=== PATIENT | female | born 1995 | race Caucasian/White ===

== ENCOUNTER 2019-11-29 08:28 | Outpatient (CLI) | payer MEDICAID, SELFPAY ==
--- NOTE | 2019-11-29 08:34 | US_ITS ---
WS: [id number] ULTRASOUND OB LIMITED TECHNIQUE: Limited ultrasound examination of the fetus. CLINICAL INFORMATION: SUPERVISION NORMAL COMPARISON: November 04, 2019 FINDINGS: Single interuterine gestation. presentation is vertex Placental location is anterior. Placenta grade: 0. heart rate 157 BPM. Normal amniotic fluid volume. Anatomy: Left ventricular outflow track remains difficult to visualize but better seen today within normal loera its. Normal 4 chamber heart. US/[place] [id number] IMPRESSION: 1. Left ventricular outflow track remains difficult to visualize but better se en today within normal limits 2. Normal four-chamber heart.
== END 2019-11-29 08:29 | disposition home or self-care (01) ==
PROVIDERS: Family Provider Family Medicine; PCP Family Medicine; Visit Provider Family Medicine
DX: Z34.80 Encounter for supervision of other normal pregnancy, unspecified trimester (principal)
CPT/HCPCS: 76816

== ENCOUNTER 2019-12-16 21:55 | Inpatient (IN) | payer MEDICAID, SELFPAY ==
[2019-12-16] VITALS (9 sets, daily range): BP systolic 0–131; BP diastolic 0–72; PULSE 80–97; RESP 16; TEMP 36.8; BMI 38.8
--- NOTE | 2019-12-16 22:10 | US_ITS ---
WS: [id number] BIOPHYSICAL PROFILE HISTORY: WELL BEING COMPARISON: None available. Parameters are as follows: Breathin Movement: 2 Tone: 2 Fluid volume: 2 Breech position. Cardiac activity 171 bpm. Anterior placenta with no previa or abruption. Grade 1. Cervix is closed at 6.1 cm. Largest vertical pocket of amniotic fluid 3.7 cm. Biophysical profile score: 8/8. US/US OB BPP wo NST 11439 IMPRESSION:
[2019-12-16 22:48] LABS: Basophils % 0.1 %; Eosinophils # 0.1 10^3/uL (0.0-0.8); Eosinophils % 0.7 %; Hematocrit 35.6 % (37.0-47.0); Hemoglobin 11.3 g/dL (11.5-15.3); Lymphocytes # 2.4 10^3/uL (0.8-4.8); Lymphocytes % 15.8 %; Mean Corpuscular HGB Conc 31.7 g/dL (30.0-36.0); Mean Platelet Volume 8.9 fL (7.4-10.4); Monocytes # 0.9 10^3/uL (0.2-0.9); Neutrophils # 11.4 10^3/uL (1.8-7.7); Neutrophils % 76.9 %; Nucleated Red Blood Cells % 0 %; Platelet Count 356 10^3/cmm (130-400); Red Blood Count 4.19 10^6/uL (4.1-5.3); Red Cell Distribution Width 14.5 % (12.1-15.1); White Blood Count 14.9 10^3/uL (4.0-10.0)
[2019-12-16 22:52] LABS: Alanine Aminotransferase 10 U/L (0-33); Albumin Level 3.5 g/dL (3.5-5.2); Alkaline Phosphatase 96 IU/L (35-105); Anion Gap 14.1 (5-19); Aspartate Amino Transferase 15 U/L (0-32); Blood Urea Nitrogen 6 mg/dL (6-20); Calcium 9.8 mg/dL (8.5-10.5); Carbon Dioxide 26 mmol/L (22-29); Chloride 100 mmol/L (98-107); Globulin 3.6 g/dL (1.3-4.6); Glomerular Filtration Rate 101.1 mL/min (90-130); Glucose 87 mg/dL (74-109); Potassium 4.1 mmol/L (3.5-5.1); Sodium 136 mmol/L (136-145); Total Bilirubin 0.2 mg/dL (0.15-1.2); Total Protein 7.1 g/dL (6.6-8.7)
[2019-12-16] MEDS: lactated ringers 1,000 ML 125 ML IV (23:01)
[2019-12-16] MEDS: betamethasone susp 6 mg/mL 5 mL 12 MG IM (23:02)
[2019-12-17] VITALS (33 sets, daily range): BP systolic 102–126; BP diastolic 44–75; PULSE 76–101; RESP 16–18; TEMP 36.5–36.7
[2019-12-17 01:13] LABS: INR 1.02 (0.8-1.2)
[2019-12-17 01:14] LABS: Partial Thromboplastin Time 26.8 SECONDS (23.9-36.7)
[2019-12-17 01:15] LABS: Fibrinogen 528 mg/dL (184-529)
[2019-12-17] MEDS: lactated ringers 1,000 ML 125 ML IV ×3 (06:44→22:52)
--- NOTE | 2019-12-17 08:34 | P.HP_ITS ---
Providers/Chief Complaint Admitting Physician: Juan Bustos MD Primary Care Provider: Juna Bustos MD Chief Complaint: vaginal bleeding History of Present Illness Nathaly Beach is a 24 year old G2, P1 at 24.4 weeks gestation by 6-week ultrasound inconsistent with LMP. Her is complicated by history of gestational hypertension, history of 9 pound 4 ounce infant. The patient was in her usual state of health on 12/16/2019, when she was having a bowel movement and began having vaginal bleeding. The patient said that it was a small amount of blood, however it was bright red in nature. It was mixed with mucus. The patient did not have any contractions or abdominal pain with this. She presented to labor and delivery for further evaluation. In labor and delive ry a sterile vaginal exam was done and bright red blood was noted on the glove mixed with mucus. For this reason the patient was kept for further observation. Review of Systems Narrative: The patient denies chest pains, fever, shortness of breath, cough, abdominal pain, nausea, vomiting, diarrhea, leakage of fluid. The patient admits to vaginal bleeding and constipation. Medications/Allergies Home Medications Medication Instructions Recorded Confirmed Last Taken Type [id number] fumarate-FA 1 tab PO DAILY 12/16/19 12/16/19 12/15/19 20:00 History [] Allergies Allergy/AdvReac Type Severity Reaction Status Date / Time No Known Drug Allergies Allergy Unknown Unknown Verified 12/16/19 20:52 PFSH Acute PFSH: Statuses (acute, chronic, etc) shown below reflect problem list status as previously entered and may not be historically accurate Medical History (Updated 12/17/19 @ 08:40 by Juan Bustos MD) History of gestational hypertension (Acute) Female Reproductive History: : 2 Vitals/I&O/Wt Last Vital Signs Temp 98.1 F 12/17/19 04:15 Pulse 85 12/17/19 08:21 Resp 18 12/17/19 04:15 BP 114/61 12/17/19 08:21 12/16/19 12/17/19 12/17/19 22:59 06:59 14:59 Intake Total 964.583 / 964.583 Balance 964.583 / 964.583 Weight last 48 hrs Weight 8.748 oz Weight 248 lb Physical Exam Narrative: EXAM NARRATIVE: General: Alert and oriented x3 Eyes: Pupils equal round and reactive to light and accommodation Mouth: Mucous membranes moist, pharynx non-erythematous Cardiac: Regular rate and rhythm without murmurs Lungs: Clear to auscultation bilaterally without wheezes, crackles or rhonchi Abdomen: Soft, non-tender, fundus consistent with gestational age Extremities: Trace edema in the bilateral lower extremities Data : 12/16/19 22:15 12/16/19 22:15 A&P Additional A&P Information Nathaly Beach is a 24 year old at 24.4 weeks gestation by 6-week ultrasound inconsistent with LMP. Her is complicated by history of gestational hypertension, history of 9 pound 4 ounce infant. There is concern that the patient may have a placental abruption. The ultrasound did not show findings of this and she is not currently having contractions, however with the vaginal bleeding, we will watch the patient for the next 48 hours to be sure that this does not package pick up. The patient was given a dose of steroids last night and we will give the second dose this evening. The patient will be on bedrest with bathroom privileges and if any bleeding increases, then we will further evaluate. Certainly if the bleeding is picking up more or there are contractions, then we will need to add further treatments as well as look at transferring to a higher level of care. The patient's labs look good at this time. The patient is stable, so we will plan to keep her here at this time. Plan for discharge home 48 hours after last bleeding as long as the patient is stable. All questions were answered. The patient is in agreement with the current plan of care. Attestations Medical Necessity Statement*: The patient will be here for greater than 2 midnights due to treatment of placental abruption. Coding Level of Care Code Acute Light Industrial Supervisor for Nia Hsieh
[2019-12-17] MEDS: betamethasone susp 6 mg/mL 5 mL 12 MG IM (22:52)
[2019-12-18] VITALS (7 sets, daily range): BP systolic 111–124; BP diastolic 57–72; PULSE 72–83; RESP 18; TEMP 36.4–36.6
[2019-12-18] MEDS: lactated ringers 1,000 ML 125 ML IV (06:18)
--- NOTE | 2019-12-18 07:45 | US_ITS ---
WS: [id number] LIMITED OBSTETRICAL ULTRASOUND HISTORY: Placental abruption COMPARISON: 12/16/2019 Presentation: Breech. Cervix: Closed and normal length. 4.9 cm in length. Placenta: Anterior. No abruption or previa is identified. Grade: 1 HEART: FHR of 150 BPM. measurements: BPD = 6.1 cm = 24w6d HC = 23.0 cm = 25w0d AC = 20.3 cm = 24w6d FL = 4.6 cm = 25w2d Visually there is an appropriate amount of amniotic fluid. EFW: 762 g; 58 %. AGA by ultrasound: 25w0d LUCIA by ultrasound: 04/01/2020 Correlates well with the first trimester EDC of 04/03/2020. US/ OB limited 40413 IMPRESSION: 1. Single intrauterine gestation of 25 weeks 0 days with an EDC of 04/01/2020. Appropriate growth since the first trimester ultrasound. 2. Anterior placenta with no abruption. 3. Breech.
--- NOTE | 2019-12-18 19:18 | P.DS_ITS ---
Discharge Providers Date of Admission: 12/16/19 21:55 Date of Discharge: Date of Discharge: December 18, 2019 Attending Provider at Admission: Juan Bustos MD Attending Provider at Discharge: Juan Bustos MD Primary Care Provider: Juan Bustos MD Diagnoses at Discharge Discharge Diagnosis (1) Intrauterine : Status: Acute (2) Vaginal bleeding in : Status: Acute Other Information Additional DC diagnoses/information: 1. Intrauterine at 24.4 weeks gestation 2. Third trimester vaginal bleeding concerning for placental abruption 3. History of gestational hypertension Reason for Visit Reason for Visit: Reason For Visit: vaginal bleeding Hospital Course Hospital Course: The patient was admitted to labor and delivery triage secondary to vaginal bleeding concerning for a placental abruption. The patient had bright red blood upon exam and was watched for further observation. Lab work done did not show any signs of coagulopathies. No significant contractions were noted. The patient had no further bleeding after admission and was watched for 2 days. She did well and since that her bleeding stopped and she had no further problems, she was given precautions to decrease her activity overall over the next few days and gradually increase as tolerated. If bleeding starts again, she is to let me know or return to OB triage. I discussed with the patient that this could be due to placental abruption, however there is always a possibility of cervical bleeding. An ultrasound was done to confirm adequate growth at this point, and we will plan to do a recheck in approximately a month. All questions were answered and the patient is in agreement with discharge home at this time. Physical Exam Narrative: EXAM NARRATIVE: General: Alert and oriented x3 Cardiac: Regular rate and rhythm without murmurs Lungs: Clear to auscultation bilaterally without wheezes, crackles or rhonchi Abdomen: Soft, nontender, fundus consistent with gestational age Extremities: Trace edema in the bilateral lower extremities Discharge Data Data Completed and Pending: Completed Studies During Hospitalization Category Date Time Status US OB BPP w o NST 78226 Routin e Ultrasound 12/16/19 22:10 Completed US OB limited 768 15 Routine Ultrasound 12/18/19 07:45 Completed Pending at discharge Category Date Time Status Group B Streptoco ccus Culture Stat Lab 12/16/19 22:42 Results Vitals: Last Vital Signs Temp 97.5 F L 12/18/19 09:26 Pulse 83 12/18/19 12:43 Resp 18 12/18/19 04:00 BP 114/65 12/18/19 12:43 Discharge Plan Discharge Patient Disposition: Home, Self-Care Condition: Good Prescriptions: New Milk of Magnesia 400 mg/5 mL suspension 15 ml PO DAILY PRN (Reason: constipation) Qty: 118 RF: 0 Continued 28-800 mg-mcg Tablet 1 tab PO DAILY RF: 0 Discharge Orders: Discharge Order (Routine); Ordered 12/18/19 Ordered By: Juan Bustos Referrals: Juan Bustos MD [Primary Care Provider] - 12/20/19 Discharge Diet: Regular Discharge Activity: Limit activity as instructed Patient Instructions: Placental Abruption (GEN), OB Discharge Report, OB Undelivered Discharge Activity Restrictions/Additional Instructions: Keep her overall activity level very low for the next few days, then gradually increase as long as there is no bleeding. Discharge Date/Time: 12/18/19 15:10 Discharge Attestations Time Spent in Discharge Care*: less than 30 min Quality Metrics Clinical Quality Measures During this hospital stay, did patient experience: None Coding Level of Care Code Acute Automotive Repair Technician for Chg Fwd Diagnoses Intrauterine Z34.90 Vaginal bleeding in O46.90
== END 2019-12-18 15:10 | disposition home or self-care (01) | DRG 833 ==
LOC: OBGYN 12-17 07:59 → OPOB 12-19 08:12
PROVIDERS: Admitting Provider Family Medicine; Family Provider Family Medicine; PCP Family Medicine; Visit Provider Family Medicine
DX: O45.92 Premature separation of placenta, unspecified, second trimester (principal); Z3A.24 24 weeks gestation of pregnancy; Z79.899 Other long term (current) drug therapy
CPT/HCPCS: 12345; 36415; 59025; 76815; 76819; 80053; 85025; 85384; 85610; 85730; 86850; 86900; 87081; 96360; 96361; 96372; 99211; A9270; G0378; J0702

== ENCOUNTER 2020-03-05 14:55 | Outpatient (CLI) | payer MEDICAID, SELFPAY ==
--- NOTE | 2020-03-05 | US_ITS ---
WS: [id number] ULTRASOUND OB LIMITED TECHNIQUE: Limited ultrasound examination of the fetus. CLINICAL INFORMATION: THOR, BPP AND EFW SMALL FOR GSA COMPARISON: December 18, 2019 FINDINGS: Cervix measures 3.2 cm Single interuterine gestation. Placental location is anterior. Placenta grade: 2 heart rate 141 BPM. THOR 13.62 Estimated gestational age 36 weeks 5 days Estimated delivery March 28, 2020 Biophysical profile 8 out of 8. breathin movement: 2 tone: 2 Amniotic fluid: 2 IMPRESSION 1. Normal biophysical profile 8 out of 8 2. Anterior placenta grade 2. 3. Cervix is long and closed. 4. Normal THOR.
== END 2020-03-05 14:56 | disposition home or self-care (01) ==
PROVIDERS: Family Provider Family Medicine; PCP Family Medicine; Visit Provider Family Medicine
DX: P05.10 Newborn small for gestational age, unspecified weight (principal)
CPT/HCPCS: 76815; 76819

== ENCOUNTER 2020-03-24 11:04 | Outpatient (CLI) | payer MEDICAID, SELFPAY ==
[2020-03-24] VITALS (9 sets, daily range): BP systolic 0–161; BP diastolic 0–89; PULSE 86–93; BMI 39.6
--- NOTE | 2020-03-24 11:22 | US_ITS ---
WS: [id number] BIOPHYSICAL PROFILE AND LIMITED OB. HISTORY: Gestational HYPERTENSION COMPARISON: 03/05/2020, 08/12/2019 Presentation: Vertex. Cervix: Not well visualized. Placenta: Anterior, no previa or abruption. Grade: 2 HEART: FHR of 160BPM. measurements: BPD = 9.6 cm = 39w1d HC = 34.0 cm = 39w1d AC = 35.5 cm = 39w3d FL = 7.5 cm = 38w4d THOR: 14.8 cm; largest vertical pocket is 5.2 cm. EFW: 3710g; 88 %. AGA by ultrasound: 39w1d LUCIA by ultrasound: 03/30/2020 Measurements are internally concordant. Appropriate growth since the first trimester ultrasound. Biophysical profile: Parameters are as follows: Breathin Movement: 2 Tone: 2 Fluid volume: 2 1. Biophysical profile score: 8/8. 2. Single intrauterine gestation of 39w1d and 03/30/2020. Appropriate growth since the first trimeste r ultrasound. Normal amniotic fluid index. US/US OB lmt w/ BPP wo NST IMPRESSION:
== END 2020-03-24 12:50 | disposition home or self-care (01) ==
LOC: OPOB 11:07 → OBGYN 03-26 08:51
PROVIDERS: PCP Family Medicine; Visit Provider Family Medicine
DX: O16.3 Unspecified maternal hypertension, third trimester (principal); Z3A.00 Weeks of gestation of pregnancy not specified
CPT/HCPCS: 59025; 76815; 76819; 99211

== ENCOUNTER 2020-03-25 14:42 | Inpatient (IN) | payer MEDICAID, SELFPAY ==
[2020-03-25] VITALS (41 sets, daily range): BP systolic 0–178; BP diastolic 0–97; PULSE 74–112; TEMP 36.7
[2020-03-25 15:33] LABS: Total Volume, Urine 650 mL
[2020-03-25 15:51] LABS: Total Protein 24 Hour Urine 209.3 mg/24HR (0-150); Urine Total Protein 24 Hour 32.2 mg/dL (0-150)
--- NOTE | 2020-03-25 16:44 | PM.HP ---
Providers/Chief Complaint Admitting Physician: Juan Bustos MD Primary Care Provider: Juan Bustos MD Chief Complaint: Elevated BP History of Present Illness Nathaly Beach is a 24 year old at 38.5 weeks gestation by 6-week ultrasound inconsistent with LMP. Her is complicated by history of gestational hypertension now with gestational hypertension with intermittent severe features, history of 9 pound 4 ounce , GBS positive. The patient presents to labor and delivery triage secondary to elevating blood pressures over the last week. They have been gradually increasing and she was seen in triage yesterday with blood pressures in the low to mid 140s. She came back today for a recheck and her blood pressures were in the 140s systolic up to 158 systolic. She has been seeing spots in her vision. She denies any headaches, nausea, fever, chest pain, shortness of breath, dysuria. She has had some minimal vaginal bleeding since being checked yesterday. No leakage of fluid. Medications/Allergies Home Medications Medication Instructions Recorded Confirmed Last Taken Type 1 tab PO DAILY 12/16/19 03/24/20 03/24/20 07:30 History Allergies Allergy/AdvReac Type Severity Reaction Status Date / Time No Known Drug Allergies Allergy Unknown Verified 03/24/20 11:39 PFSH Acute PFSH: Medical History (Updated 03/25/20 @ 16:49 by Juan Bustos MD) History of gestational hypertension Family History (Updated 03/25/20 @ 16:48 by Juan Bustos MD) Mother Lupus Social History (Updated 03/25/20 @ 16:48 by Juan Bustos MD) Smoking and tobacco status: never smoked Alcohol intake: never Substance/Drug Use: never Vitals/I&O/Wt Last Vital Signs Pulse 98 03/25/20 16:39 BP 142/89 03/25/20 16:39 Physical Exam Narrative: EXAM NARRATIVE: General: Alert and oriented x3 Eyes: Pupils equal round and reactive to light and accommodation Mouth: Mucous membranes moist, pharynx non-erythematous Cardiac: Regular rate and rhythm without murmurs Lungs: Clear to auscultation bilaterally without wheezes, crackles or rhonchi Abdomen: Soft, non-tender, fundus consistent with gestational age Extremities: Trace edema in the bilateral lower extremities A&P Assessment and plan (1) Intrauterine : Status: Acute (2) Gestational hypertension: Status: Acute Additional A&P Information Nathaly Beach is a 24 year old at 38.5 weeks gestation by 6-week ultrasound inconsistent with LMP. Her is complicated by history of gestational hypertension now with gestational hypertension with intermittent severe features, history of 9 pound 4 ounce , GBS positive. Because of the patient's blood pressures have been elevated in the 140s and high 150s, we will go ahead and induce her for gestational hypertension with intermittent severe features. The patient has been seeing spots off and on. The patient is GBS is positive so we will go ahead and treat with ampicillin. We will start her IV and start the antihypertensive protocol as needed. We will induce her using IV Pitocin. The patient's cervical exam is 4/50/-1. heart tones are in the mid 150s with moderate variability and good accelerations. This is a category 1 tracing. I spoke with the patient and her regarding the findings and recommendations for induction of labor secondary to gestational hypertension with intermittent severe features and the possible risks surrounding delivery prior to term and they are in agreement with proceeding with induction of labor at this time. All questions were answered. Attestations Medical Necessity Statement*: The patient will be here for greater than 2 midnights due to routine intrapartum and management of labor and delivery. Coding Level of Care Code Acute Automobile Washer Steam for Chg Jori Diagnoses Intrauterine Z34.90 Gestational hypertension O13.9
[2020-03-25 18:41] LABS: Basophils % 0.2 %; Eosinophils # 0.1 10^3/uL (0.0-0.8); Eosinophils % 0.7 %; Hematocrit 35.3 % (37.0-47.0); Hemoglobin 11.2 g/dL (11.5-15.3); Lymphocytes # 2.3 10^3/uL (0.8-4.8); Lymphocytes % 17.3 %; Mean Corpuscular HGB Conc 31.7 g/dL (30.0-36.0); Mean Corpuscular Hemoglobin 27.6 pg (28.0-34.0); Mean Corpuscular Volume 86.9 fL (81-99); Mean Platelet Volume 10.1 fL (7.4-10.4); Monocytes % 7.2 %; Neutrophils # 9.8 10^3/uL (1.8-7.7); Neutrophils % 73.9 %; Nucleated Red Blood Cells % 0 %; Platelet Count 308 10^3/cmm (130-400); Red Blood Count 4.06 10^6/uL (4.1-5.3); Red Cell Distribution Width 15.9 % (12.1-15.1); White Blood Count 13.3 10^3/uL (4.0-10.0)
[2020-03-25] MEDS: ampicillin 2,000 MG in sodium chloride 0.9% (plus) 50 ML 100 MG IV (18:46)
[2020-03-25] MEDS: dextrose 5%-lactated ringers 1,000 ML 125 ML IV (18:46)
[2020-03-25] MEDS: labetalol 5 mg/mL SDV 20mL 20 MG IVP (22:45)
[2020-03-25] MEDS: ampicillin 1,000 MG in sodium chloride 0.9% (plus) 50 ML 100 MG IV (22:59)
[2020-03-26] VITALS (141 sets, daily range): BP systolic 0–203; BP diastolic 0–139; PULSE 61–107; RESP 16–18; TEMP 36.4–37.1; O2SAT 89–100
[2020-03-26] MEDS: oxytocin 30 UNIT/500 ML BAG IV (00:20)
[2020-03-26] MEDS: ampicillin 1,000 MG in sodium chloride 0.9% (plus) 50 ML 100 MG IV ×3 (02:10→10:55)
--- NOTE | 2020-03-26 04:34 | P.ANESUD_ITS ---
Pre-Anesthetic Update Pre-Anesthetic Assessment: Date of Surgery/Procedure: 03/26/20 Preop Cristine gnosis: IUP Any changes to Pre-Anesthetic Assessment?: No Last Intake: 16:00 Labs Last 48hrs: Laboratory Results - last 48 hr 03/25/20 03/25/20 14:30 17:20 WBC 13.3 H RBC 4.06 L Hgb 11.2 L Hct 35.3 L MCV 86.9 MCH 27.6 L MCHC 31.7 RDW 15.9 H Plt Count 308 MPV 10.1 Neut % (Auto) 73.9 Lymph % (Auto) 17.3 Stewart % (Auto) 7.2 Eos % (Auto) 0.7 Baso % (Auto) 0.2 Neut # (Auto) 9.8 H Lymph # (Auto) 2.3 Stewart # (Auto) 1.0 H Eos # (Auto) 0.1 Baso # (Auto) 0.0 Nucleated RBC % (a uto) 0 Nucleated RBCs # 0.0 Urine Total Volume 650 Ur 24 Hour Volume 209.3 H Ur Total Protein 2 4 Hr 32.2 Vitals: Temperature 98.7 F 03/26/20 02:00 Temperature Source Oral 03/26/20 02:00 Pulse Rate 80 03/26/20 04:29 Respiratory Effort Non-Labored 03/25/20 20:17 Respiratory Depth Normal 03/25/20 20:17 Respiratory Patter n 03/25/20 20:17 Blood Pressure 138/78 03/26/20 04:29 Blood Pressure Becca n 98 03/26/20 04:29 Pulse Oximetry 98 03/26/20 04:32 Oxygen Delivery Me thod 03/25/20 20:17 Exam: Pre-Anes Outpt Exam: alert, oriented x 3, clear to auscultation bilate rally and regular rate & rhythm Cardiac Studies: No Data to Display
--- NOTE | 2020-03-26 04:35 | P.ANES_ITS ---
Anesthesia Procedures Procedure/Date: 03/26/20 Epidural: Time Out Performed: Yes Consents Signed: Procedure Consent Consent: requested by attending/covering physician and from patient Lumbar Level: L3-L4 Epidural position: sitting Epidural procedure: sterile prep of area, 1% lidocaine to numb the area, 18 g needle, neg for paresthesia, test d ose given, 1.5% xylocaine 1:200k epi, 0.2% Ropivacaine bolus ml, placed PCEA, no systemic response, sterile dressing applied, L.U.D. no apparent complications and 0.2% Ropiavacaine @ mls/hr Additional Comments: Ropiv 0.2% 8 cc and Fentanyl 100 mcg bolus
[2020-03-26] MEDS: lactated ringers 1,000 ML 999 ML IV (04:38)
--- NOTE | 2020-03-26 05:11 | ANES.PREANE2 ---
Pre-Anesthetic Assessment Pre-Anesthetic Assessment: Height/Weight: Height 1.7 m Temp Pulse BP Pulse Ox 98.7 F 66 0/0 98 03/26/20 02:00 03/26/20 05:05 03/26/20 05:09 03/26/20 04:56 Preop Diagnosis: IUP Proposed Procedure: JUANA Was Beta Kristel taken within 24 hours: N/A Last Intake: 21:00 Social: Social History: No alcohol and No tobacco Exam: Pre-Anes Outpt Exam: alert, oriented x 3, clear to auscultation bilaterally and regular rate & rhythm Airway: Submandibular: WNL Cervical ROM: WNL MP: 2 Dentition: Full History/ROS: No significant history except as noted and No significant complaints Pulmonary: Pulmonary: None reported CV/HEM: CV/HEM: None reported : : None reported Hepatic: Hepatic: None reported GI: GI: None reported Metabolic: Metabolic: None reported Musc/skel: Musc/skel: None reported Neuropsych: Neuropsych: None reported Anesthetic Plan: ASA status: 2 Anesthesia: Regional (specify below) Other: JUANA Risk of > 500 ml blood loss (7ml/kg in children): No Meds/Allergies Current Medications: Current Medications Generic Name Dose Route Start Last Admin Trade Name Freq PRN Reason Stop Dose Admin Dextrose/Lactated Ringer's 1,000 mls @ 125 m ls/hr 03/25/20 18:30 03/25/20 18:46 Dextrose 5%-Lact ated Ringers IV 125 mls/hr .Q8H NILA Administration Ampicillin Sodium 1,000 mg/ 50 mls @ 100 mls/ hr 03/25/20 22:21 03/26/20 02:10 Sodium Chloride IV 100 mls/hr Q4H NILA Administration Protocol Ampicillin Sodium 2,000 mg/ 50 mls @ 100 mls/ hr 03/25/20 18:30 03/25/20 18:46 Sodium Chloride IV 100 mls/hr ONCE NILA Administration Protocol Oxytocin 30 unit in 500 ml s @ 1 mls/hr 03/25/20 18:30 03/26/20 01:33 Pitocin IV 8 milliunit/min .Q24H NILA 8 mls/hr Titration Protocol 1 MILLIUNIT/MIN Ropivacaine 200 mg in 100 mls @ 13 mls/hr 03/26/20 03:15 03/26/20 04:38 Naropin Premix EPIDURAL 13 mls/hr .Q7H42M NILA Administration PFSH Anesthesia PFSH: Medical History (Updated 03/25/20 @ 16:49 by Juan Bustos MD) History of gestational hypertension Family History (Updated 03/25/20 @ 16:48 by Juan Bustos MD) Mother Lupus Social History (Updated 03/25/20 @ 16:48 by Juan Bustos MD) Smoking and tobacco status: never smoked Alcohol intake: never Substance/Drug Use: never Female Reproductive History: Date of last menstrual period: 06/28/19 Data Anesthesia CBC & Chem 7: 03/25/20 17:20 Other Labs: Laboratory Results - last 48 hr 03/25/20 03/25/20 14:30 17:20 WBC 13.3 H RBC 4.06 L Hgb 11.2 L Hct 35.3 L MCV 86.9 MCH 27.6 L MCHC 31.7 RDW 15.9 H Plt Count 308 MPV 10.1 Neut % (Auto) 73.9 Lymph % (Auto) 17.3 Navarro % (Auto) 7.2 Eos % (Auto) 0.7 Baso % (Auto) 0.2 Neut # (Auto) 9.8 H Lymph # (Auto) 2.3 [place] # (Auto) 1.0 H Eos # (Auto) 0.1 Baso # (Auto) 0.0 Nucleated RBC % (auto) 0 Nucleated RBCs # 0.0 Urine Total Volume 650 Ur 24 Hour Volume 209.3 H Ur Total Protein 24 Hr 32.2 Cardiac Studies: No Data to Display
--- NOTE | 2020-03-26 05:14 | P.ANES_ITS ---
Anesthesia Procedures Procedure/Date: 03/26/20 Epidural: Time Out Performed: Yes Consents Signed: Procedure Consent Consent: requested by attending/covering physician and from patient Lumbar Level: L3-L4 Epidural position: sitting Epidural procedure: sterile prep of area, 1% lidocaine to numb the area, 18 g needle, neg for paresthesia, test d ose given, 1.5% xylocaine 1:200k epi, 0.2% Ropivacaine bolus ml, placed PCEA, no systemic response, sterile dressing applied, L.U.D. no apparent complications and 0.2% Ropiavacaine @ mls/hr Additional Comments: MAYELIN at 6 cm. Ropiv 0.2 % 8cc and Fentanyl 100 mcg bolus
--- NOTE | 2020-03-26 07:30 | PC.NURSE ---
Call to Mary Richey CRNA requesting intervention regarding pt having increased pain with epidural and after pushing bolus button x2.
--- NOTE | 2020-03-26 07:41 | PC.NURSE ---
Mary Smart ELECTRIC MOTOR REPAIRER at bedside dosing epidural to assist in easing pt pain.
--- NOTE | 2020-03-26 07:50 | ANES.PROC ---
Anesthesia Procedures Procedure/Date: 03/26/20 Epidural Bolus Procedure Narrative: Called for pt having lots of pressure and pain with contractions to perineal area. Pt given 2% Lidocaine MPF 10ml via epidural.
--- NOTE | 2020-03-26 08:59 | PC.NURSE ---
Call to Dr Peterson requesting re-evaluation with epidural. Pt pain is not getting better with boluses.
[2020-03-26] MEDS: lactated ringers 1,000 ML 125 ML IV (09:38)
--- NOTE | 2020-03-26 09:53 | ANES.PROC ---
Anesthesia Procedures Procedure/Date: 03/26/20 Lumbar Labor Epidural Epidural: Time Out Performed: Yes Consents Signed: Procedure Consent Consent: from patient Lumbar Level: L3-L4 Epidural position: sitting Epidural procedure: sterile prep of area, 1% lidocaine to numb the area (5), 18 g needle, negative for paresthesia passed, neg for paresthesia, test dose given, 1.5% xylocaine 1:200k epi (5), 0.2% Ropivacaine bolus ml (7 cc 2% Lidocaine used. ), placed PCEA (5cc q10min x 3), no systemic response, sterile dressing applied, L.U.D. no apparent complications and 0.2% Ropiavacaine @ mls/hr (13) Additional Comments: Called to OB for a patient with an epidural placed around 0430. Has had mild relief, and called and it was bolused at 0750. Pt assessed and evaluated. Now she is hurting and having 0 pain relief. I checked a level and pt has 0 indication of epidural working. Explained options to patient. Cervical dilation 8cm as of the last couple hours. Pt requests to try and replace it. Dressing removed and epidural at 10cm at skin. Likely was pulled out resulting in not working well. blue tip intact. New epidural placed at 5cm in space bolused test dose and 7cc 2% lidocaine over 7 minutes. VSS throughout. Last Bp 147/69. Pain much improved.
--- NOTE | 2020-03-26 11:15 | PC.NURSE ---
Sitting on side of bed for epidural
--- NOTE | 2020-03-26 12:10 | PM.DELIVERY ---
Delivery Note: Date of delivery: March 26, 2020 Pre-delivery diagnoses: 1. Intrauterine at 38.6 weeks gestation 2. Gestational hypertension with intermittent severe features 3. History of large for gestational age Post-delivery diagnoses: 1. Intrauterine status post spontaneous vaginal delivery at 38.6 weeks gestation 2. Gestational hypertension with intermittent severe features 3. History of large for gestational age infant 4. Delivery of healthy infant male weighing 9 pounds 5 ounces with Apgars of 8 and 9 Procedure: Spontaneous vaginal delivery Op report anesthesia: Epidural Delivering Physician: Juan Bustos MD Estimated blood loss (mL): 100 Findings: 1. Healthy male weighing 9 pounds 5 ounces with Apgars of 8 9 2. Intact placenta with central vocal cord insertion site. Pre-Delivery Course: The patient presented to labor delivery triage on 03/25/2020 secondary to gestational hypertension with intermittent severe features with seeing spots and blood pressures up into the 150 range systolic. Because of this she was started on IV Pitocin for induction of labor. The patient was 4 cm dilated upon admission. Her blood pressures were watched throughout the night and she received 1 dose of labetalol. She had some that were above 160 intermittently otherwise none that were consistent. The patient made steady change and at 6:10 AM AROM was performed and clear fluid was noted. The patient's epidural initially was working well, however then was not working sufficiently so she received a second epidural. This worked much better. Patient then was complete by 10:56 AM on 03/26/2020. Delivery: The patient began pushing at 11:37 AM on 03/26/2020. With 1 contraction, the delivered in the OA position. There was a nuchal cord and it was reduced prior to delivery of the . The right shoulder was the anterior shoulder and it delivered with ease. Rest the delivered without complication. The 's mouth and nose were bulb suctioned by myself. The infant was crying shortly after delivery. The infant was placed on the mother's chest where the nurses were waiting to care for him. The cord was clamped by myself after approximately 1 minute. The cord was cut by the infant's father. The cord was then drained of blood and traction was placed on the umbilical cord. The placenta delivered without complication at 11:42 AM on 03/26/2020. The placenta was noted to be intact with a peripheral umbilical cord insertion site. IV Pitocin was bolused. The uterus was massaged and there was little bleeding noted. The cervix was inspected and no lacerations were noted. The vaginal wall was inspected and a second-degree vaginal laceration was noted in the midline perineal region. The patient had adequate analgesia with epidural and no lidocaine was necessary. 3-0 Vicryl was used to repair the laceration in a running fashion. The patient tolerated this well. The rectum was inspected digitally and no sutures were noted. Currently both the mother and are doing very well. Post-Delivery Status: blood pressures are currently in the 120s systolic. We will watch for any signs of complications with this. A&P Assessment and plan (1) Intrauterine : Status: Acute (2) Gestational hypertension: Status: Acute Coding Level of Care Code Acute [employer] for Chg Fwd Diagnoses Intrauterine Z34.90 Gestational hypertension O13.9
[2020-03-26] MEDS: labetalol 5 mg/mL SDV 20mL 20 MG IVP (14:34)
[2020-03-26] MEDS: labetalol 5 mg/mL SDV 20mL 40 MG IVP (15:23)
--- NOTE | 2020-03-26 16:42 | PC.NURSE ---
Pt and all belongings transferred to room 205. Pt transferred per wheelchair due to feeling weak in legs.
[2020-03-26] MEDS: docusate sodium 100 mg Capsule PO (18:03)
[2020-03-26] MEDS: benzocaine-menthol 78 gm Canister 1 SPRAY TOPICAL (20:14)
[2020-03-26 23:41] LABS: Hematocrit 30.2 % (37.0-47.0); Hemoglobin 9.2 g/dL (11.5-15.3); Mean Corpuscular HGB Conc 30.5 g/dL (30.0-36.0); Mean Corpuscular Hemoglobin 26.5 pg (28.0-34.0); Mean Platelet Volume 9.6 fL (7.4-10.4); Platelet Count 249 10^3/cmm (130-400); Red Blood Count 3.47 10^6/uL (4.1-5.3); White Blood Count 14.3 10^3/uL (4.0-10.0)
[2020-03-27 01:17] VITALS: BP 114/75; PULSE 83; RESP 16; TEMP 36.9; O2SAT 98
[2020-03-27 04:00] VITALS: BP 135/85; PULSE 93; RESP 18; TEMP 36.8; O2SAT 96
[2020-03-27] MEDS: docusate sodium 100 mg Capsule PO (09:39)
[2020-03-27] MEDS: prenatal vitamin Capsule 1 CAP PO (09:39)
[2020-03-27 09:41] VITALS: BP 126/84; PULSE 82; RESP 16; TEMP 36.9; O2SAT 97
--- NOTE | 2020-03-27 14:57 | PM.DCS ---
Discharge Providers Date of Admission: 03/25/20 18:15 Date of Discharge: March 27, 2020 Attending Provider at Admission: Juan Bustos MD Attending Provider at Discharge: Juan Bustos MD Primary Care Provider: Juan Bustos MD Diagnoses at Discharge Discharge Diagnosis (1) Intrauterine : Status: Acute (2) Gestational hypertension: Status: Acute Reason for Visit Reason for Visit: Reason For Visit: Elevated BP Hospital Course Hospital Course: [place] is a 24 year old G2 now P2 status post spontaneous vaginal delivery at 38.6 weeks gestation by 6-week ultrasound inconsistent with LMP. Her was complicated by history of gestational hypertension now with gestational hypertension with intermittent severe features, history of 9 pound 4 ounce , GBS positive. The patient presented to labor delivery triage on 03/25/2020 secondary to gestational hypertension with intermittent severe features with seeing spots and blood pressures up into the 158 range systolic. Because of this she was started on IV Pitocin for induction of labor. The patient was 4 cm dilated upon admission. Her blood pressures were watched throughout the night and she received 1 dose of labetalol. She had some that were above 160 intermittently otherwise none that were consistent. The patient made steady change and at 6:10 AM AROM was performed and clear fluid was noted. The patient's epidural initially was working well, however then was not working sufficiently so she received a second epidural. This worked much better. Patient then was complete by 10:56 AM on 03/26/2020. Delivery: The patient began pushing at 11:37 AM on 03/26/2020. With 1 contraction, the infant delivered in the OA position. There was a nuchal cord and it was reduced prior to delivery of the infant. The right shoulder was the anterior shoulder and it delivered with ease. Rest the infant delivered without complication. The infant's mouth and nose were bulb suctioned by myself. The was crying shortly after delivery. The infant was placed on the mother's chest where the nurses were waiting to care for him. The cord was clamped by myself after approximately 1 minute. The cord was cut by the 's father. The cord was then drained of blood and traction was placed on the umbilical cord. The placenta delivered without complication at 11:42 AM on 03/26/2020. The placenta was noted to be intact with a peripheral umbilical cord insertion site. IV Pitocin was bolused. The uterus was massaged and there was little bleeding noted. The cervix was inspected and no lacerations were noted. The vaginal wall was inspected and a second-degree vaginal laceration was noted in the midline perineal region. The patient had adequate analgesia with epidural and no lidocaine was necessary. 3-0 Vicryl was used to repair the laceration in a running fashion. The patient tolerated this well. The rectum was inspected digitally and no sutures were noted. , the patient initially had some elevated blood pressures into the 160s and 170s systolic. She received IV labetalol that brought these down sufficiently. The patient has had no further elevated blood pressures since approximately 2 hours after delivery. The patient's blood pressures are currently running in the 120s systolic. Patient denies any headaches, seeing spots, chest pains, shortness of breath, significant abdominal pain. Her bleeding has decreased well. Her pain is well controlled. I discussed with her the possibility of discharge home today versus tomorrow with her elevated blood pressures and she feels that she can keep her activity levels low at home. We discussed at length the need to keep activity levels down for the first week approximately in order to decrease risk for blood pressures increasing and the possible complications associated with this. The patient expressed verbal understanding and desires to be discharged home. Routine care was also discussed and all questions were answered. We will plan to follow-up with the patient on Monday. If she is having any complications of leaking, she is to come out to OB triage for further evaluation. Physical Exam Narrative: EXAM NARRATIVE: General: Alert and oriented x3 Cardiac: Regular rate and rhythm without murmurs Lungs: Clear to auscultation bilaterally without wheezes, crackles or rhonchi Abdomen: Soft, non-tender, fundus is firm and 3 cm below the umbilicus. Extremities: +1 pitting edema in the bilateral lower extremities Urinary Catheter Management^: Will: Cath Placed During This Visit: yes Urinary Catheter Date of Insertion: 03/26/20 Urinary Catheter Time of Insertion: 05:00 Discharge Data Data Completed and Pending: Labs from last 24 hours 03/26/20 23:30 WBC 14.3 H RBC 3.47 L Hgb 9.2 L Hct 30.2 L MCV 87.0 MCH 26.5 L MCHC 30.5 RDW 16.0 H Plt Count 249 MPV 9.6 Vitals: Last Vital Signs Temp 98.5 F 03/27/20 09:41 Pulse 82 03/27/20 09:41 Resp 16 03/27/20 09:41 BP 126/84 03/27/20 09:41 Pulse Ox 97 03/27/20 09:41 Discharge Plan Discharge Patient Disposition: Home, Self-Care Condition: Stable Prescriptions: New ibuprofen 800 mg Tablet 800 mg PO TID Qty: 60 RF: 0 ferrous sulfate 325 mg (65 mg iron) tablet 325 mg PO BID 14 Days Qty: 28 RF: 0 Continued 28-800 mg-mcg Tablet 1 tab PO DAILY RF: 0 Discharge Orders: Discharge Order (Routine); Ordered 03/27/20 Ordered By: Juan Bustos Referrals: Juan Bustos MD [Primary Care Provider] - 1-3 days (Please call [facility] at [phone] first thing Monday to schedule your appointment for Monday with Dr. Bustos. Doctor would like to see you Monday afternoon.) Discharge Diet: Regular Discharge Activity: Limit activity as instructed Patient Instructions: Vitamins (By mouth), OB Discharge Report, OB Food/Drug Interaction Guide, OB Care at Home, OB Home Care, OB Proud Parent Packet, OB Vaginal Deliveries Activity Restrictions/Additional Instructions: If you have any concerns that your blood pressure is becoming elevated, [facility] or if severely elevated, return to OB for further instruction. Please take your blood pressure twice a day at home. Please limit your activity for the next week to help your body heal. Nothing per vagina for 6 weeks. Discharge Attestations Time Spent in Discharge Care*: greater than 30 min Quality Metrics Clinical Quality Measures During this hospital stay, did patient experience: None Coding Level of Care Code Acute [employer] for Chg Fwd Diagnoses Intrauterine Z34.90 Gestational hypertension O13.9
[2020-03-27 16:50] VITALS: BP 140/82; PULSE 82; RESP 16; O2SAT 98
[2020-03-27 18:10] VITALS: BP 143/84; PULSE 80; RESP 16; TEMP 36.7; O2SAT 98
== END 2020-03-27 18:20 | disposition home or self-care (01) | DRG 807 ==
PROVIDERS: Admitting Provider Family Medicine; PCP Family Medicine; Visit Provider Family Medicine
DX: O13.4 Gestational [pregnancy-induced] hypertension without significant proteinuria, complicating childbirth (principal); Z37.0 Single live birth; Z3A.38 38 weeks gestation of pregnancy; O99.824 Streptococcus B carrier state complicating childbirth; O70.1 Second degree perineal laceration during delivery; O69.81X0 Labor and delivery complicated by cord around neck, without compression, not applicable or unspecified
CPT/HCPCS: 12345; 36415; 51702; 59025; 59409; 84156; 85025; 85027; 96374; 96375; 99211; G0378; G0379; J0290; J2001; J2795; J3010; J3490